=== PATIENT | female | born 1975 | race Two or more races ===

== ENCOUNTER 2024-06-03 22:17 | Emergency (ER) | payer BC, OTHER ==
[~2024-06-03] VITALS: Ht 154.9 cm; Wt 93.3 kg
[2024-06-03 22:25] VITALS: BP 140/73; PULSE 82; RESP 17; O2SAT 98
[2024-06-03 22:51] LABS: Urine Bacteria None Seen /hpf (None Seen)
[2024-06-03 22:52] LABS: Basophils # (auto) 0 10 ^3/uL (0-0.2); Eosinophils # (auto) 0.2 10 ^3/uL (0-0.8); Hemoglobin 11.8 g/dL (12.2-16.2); Lymphocytes # (auto) 2.7 10 ^3/uL (0.4-5.4); Neutrophils # (auto) 5.9 10 ^3/uL (1.6-8.6)
[2024-06-03 22:53] LABS: Basophils % (auto) 0.3 % (0.0-2.0); Eosinophils % (auto) 2.1 % (0.0-7.0); Lymphocytes % (auto) 29.3 % (10.0-50.0); Mean Corpuscular Hemoglobin 26.5 pg (28.0-32.0); Mean Corpuscular Hgb Conc. 32.9 g/dL (32.0-36.0); Mean Corpuscular Volume 80.8 fL (80.0-100.0); Monocytes # (auto) 0.5 10 ^3/uL (0-1.3); Neutrophils % (auto) 63.3 % (37.0-80.0); Platelet Count (auto) 278 10^3/uL (140-450); Red Blood Cells 4.46 10^6/uL (4.0-5.20); Red Cell Distribution Width 17.2 % (11.8-14.3); White Blood Cell 9.3 10^3/uL (4.4-10.8)
[2024-06-03 23:01] LABS: Urine Blood 3+ /uL (Negative); Urine Clarity Turbid (Clear); Urine Color Colorless (Yellow); Urine Protein, UAD TRACE (Negative); Urine Specific Gravity 1.014 (1.001-1.035); Urine Urobilinogen Normal (Negative); Urine WBC 42 /hpf (0 - 5); Urine pH 6.5 (5.0-9.0)
[2024-06-03 23:18] LABS: Alanine Aminotransferase 17 U/L (7-40); Albumin 4.7 g/dL (3.2-4.8); Alkaline Phosphatase 96 U/L (46-116); Aspartate Aminotransferase 14 U/L (13-40); BUN/Creatinine Ratio 14.1 (10.0-20.0); Blood Urea Nitrogen 9 mg/dL (9-23); Calcium 9.7 mg/dL (8.7-10.4); Carbon Dioxide 28 mmol/L (20-31); Glucose 107 mg/dL (74-106); Potassium 3.7 mmol/L (3.5-5.1); Sodium 141 mmol/L (136-145)
[2024-06-03 23:19] LABS: Bilirubin, Total 0.2 mg/dL (0.2-1.0); Total Protein 7.5 g/dL (5.7-8.2)
[2024-06-03 23:24] LABS: Anion Gap 7 (5-15); Chloride 106 mmol/L (98-107)
== END 2024-06-04 00:25 | disposition home or self-care (01) ==
LOC: ER 22:17
DX: N93.8 Other specified abnormal uterine and vaginal bleeding (principal); R10.2 Pelvic and perineal pain
CPT/HCPCS: 36415; 80053; 81001; 84702; 85025

== ENCOUNTER 2024-06-06 11:13 | Emergency (ER) | payer BC ==
[~2024-06-06] VITALS: Ht 154.9 cm; Wt 92.0 kg
[2024-06-06 12:24] LABS: Basophils # (auto) 0 10 ^3/uL (0-0.2); Eosinophils # (auto) 0.1 10 ^3/uL (0-0.8); Lymphocytes # (auto) 2.3 10 ^3/uL (0.4-5.4); Monocytes # (auto) 0.3 10 ^3/uL (0-1.3)
[2024-06-06 12:26] LABS: Basophils % (auto) 0.5 % (0.0-2.0); Eosinophils % (auto) 1.9 % (0.0-7.0); Hematocrit 33.2 % (36.0-46.0); Hemoglobin 10.7 g/dL (12.2-16.2); Lymphocytes % (auto) 29.6 % (10.0-50.0); Mean Corpuscular Hemoglobin 25.9 pg (28.0-32.0); Mean Corpuscular Hgb Conc. 32.1 g/dL (32.0-36.0); Mean Corpuscular Volume 80.6 fL (80.0-100.0); Monocytes % (auto) 3.8 % (0.0-12.0); Neutrophils % (auto) 64.2 % (37.0-80.0); Platelet Count (auto) 291 10^3/uL (140-450); Red Blood Cells 4.12 10^6/uL (4.0-5.20); White Blood Cell 7.9 10^3/uL (4.4-10.8)
[2024-06-06] MEDS ORDERED: MEDR5TAB28 PO (13:59)
[2024-06-06 14:10] VITALS: BP 136/69; TEMP 98.4
[2024-06-06 14:16] VITALS: PULSE 68; RESP 18; O2SAT 96
== END 2024-06-06 14:22 | disposition home or self-care (01) ==
LOC: ER 11:13
DX: N93.8 Other specified abnormal uterine and vaginal bleeding (principal); J45.909 Unspecified asthma, uncomplicated
CPT/HCPCS: 36415; 76856; 85025; 86850; 86900; 86901